=== PATIENT | male | born 1955 | race Hispanic/Latino ===

== ENCOUNTER → 2025-03-26 | Outpatient (CLI) | payer OTHER ==
--- NOTE | 2025-03-27 03:05 | HMCIMG ---
EXAM: CR Left Knee, 3 views. CLINICAL HISTORY: Pain. COMPARISON: None provided. FINDINGS: No acute fracture or aggressive appearing osseous lesion. Mild osteopenia. Medial compartment predominant moderate to severe tricompartmental knee joint osteoarthritis. Degenerative chondromalacial calcifications. Small suprapatellar effusion and calcifications, concerning chronic synovitis. IMPRESSION: No acute bony abnormality is evident. Mild osteopenia. Medial compartment predominant moderate to severe tricompartmental knee joint osteoarthritis. Small suprapatellar effusion and calcifications, concerning chronic synovitis. /[place]
== END | disposition home or self-care (01) ==
LOC: RAH 14:58
PROVIDERS: ATTEND Physician Assistant Medical
DX: M17.12 Unilateral primary osteoarthritis, left knee (principal); M85.88 Other specified disorders of bone density and structure, other site; M25.462 Effusion, left knee; M25.862 Other specified joint disorders, left knee; M25.562 Pain in left knee
CPT/HCPCS: 73562

== ENCOUNTER → 2025-07-24 | Outpatient (CLI) | payer OTHER ==
--- NOTE | 2025-07-24 23:11 | HMCIMG ---
EXAM: BILATERAL LOWER EXTREMITY ARTERIAL ULTRASOUND WITH DOPPLER Technique: Grayscale, color Doppler, and angle-corrected spectral Doppler ultrasound of the bilateral lower extremity arterial systems was performed in longitudinal and transverse planes at standard segmental levels. Clinical Information: Bilateral leg pain. Findings: Right lower extremity arteries: Common femoral artery peak systolic velocity 115 cm/s with triphasic waveform. Proximal superficial femoral artery 91 cm/s, triphasic. Mid superficial femoral artery 86 cm/s, triphasic. Distal superficial femoral artery 76 cm/s, triphasic. Proximal popliteal artery 76 cm/s, triphasic. Distal popliteal artery 63 cm/s, triphasic. Posterior tibial artery 73 cm/s, triphasic. Distal anterior tibial artery 42 cm/s, triphasic. Dorsalis pedis artery 63 cm/s, triphasic. No focal velocity elevation to suggest hemodynamically significant stenosis. Left lower extremity arteries: Common femoral artery 83 cm/s, triphasic. Proximal superficial femoral artery 94 cm/s, triphasic. Mid superficial femoral artery 85 cm/s, triphasic. Distal superficial femoral artery 73 cm/s, triphasic. Proximal popliteal artery 113 cm/s, triphasic. Distal popliteal artery 84 cm/s, triphasic. Posterior tibial artery 84 cm/s, triphasic. Distal anterior tibial artery 64 cm/s, biphasic. Dorsalis pedis artery 33 cm/s, biphasic. No focal velocity elevation to suggest hemodynamically significant stenosis. Plaque: Atherosclerotic changes are present bilaterally without sonographic evidence of critical stenosis. Impression: * No duplex evidence of hemodynamically significant stenosis in either lower extremity; triphasic waveforms are maintained through the femoropopliteal segments bilaterally. * Mild distal waveform blunting on the left (biphasic at the distal anterior tibial and dorsalis pedis arteries) compatible with mild distal arterial disease; correlate with symptoms and physical examination. * Bilateral atherosclerotic plaque without focal high-grade stenosis identified. Consider ankle???brachial indices and toe pressures if clinical concern for ischemia persists. /[place]
== END | disposition home or self-care (01) ==
LOC: RAH 15:03
PROVIDERS: ATTEND Family Medicine
DX: I70.203 Unspecified atherosclerosis of native arteries of extremities, bilateral legs (principal); M25.562 Pain in left knee; R68.89 Other general symptoms and signs
CPT/HCPCS: 93925